=== PATIENT | male | born 1955 | race Caucasian/White ===

== ENCOUNTER 2017-03-30 15:11 | Emergency (ER) | payer SELFPAY ==
[~2017-03-30] VITALS: Ht 27.9 cm; Wt 64.0 kg
[~2017-03-30 15:11] MED LIST: ASPI-1441 PO; IBU600 PO; LORA10CA3 PO; PRA20 PO; [UNRECOGNIZED DRUG - CODE] TD
--- NOTE | 2017-03-30 15:18 | ER Report ---
History and Physical Time Seen By MD: 15:17 (RANDOLPH VILLALBA MD) HPI/ROS CHIEF COMPLAINT: Possible stroke HISTORY OF PRESENT ILLNESS: 61-year-old male all-time smoker smokes less than a pack a day currently 2 prior CVAs presents with acute onset of neurological disability and is concerned for recurrent stroke. He reports word finding difficulty onset around 2:15 PM. He feels the symptoms may be ongoing. He was trying to describe something and couldn't find the words and felt frustrated because normally it should be easy to find the words. He did not notice any garbled or slurred speech. He did not notice any weakness or numbness or facial droop. He did not notice any syncope or presyncopal symptoms lightheadedness dizziness chest pain shortness of breath abdominal pain urinary symptoms or leg swelling. He did not notice any other problems. He was referred from clinic. REVIEW OF SYSTEMS: Constitutional: No fever, no chills. Eyes: No discharge. ENT: No sore throat. Cardiovascular: No chest pain, no palpitations. Respiratory: No cough, no shortness of breath. Gastrointestinal: No abdominal pain, no vomiting. Genitourinary: No hematuria. Musculoskeletal: No back pain. Skin: No rashes. Neurological: No headache. (RANDOLPH VILLALBA MD) Allergies: Coded Allergies: Codeine (Verified Allergy, itchy, 11/03/11) Penicillins (Verified Allergy, itchy, 11/03/11) Home Meds Reported Medications Nicotine (Nicotine Patch) 1 Box Patch.dysq, 1 BOX TD DAILY 21 mg/24 hour patch. May get OTC if he wishes to continue using. 11/04/11 Pravastatin Sod (PRAVACHOL (OR EQUIV)) 20 Mg Tab, 20 MG PO DAILY, #30 At bedtime 11/04/11 Aspirin (Aspirin Ec) 81 Mg Tablet.dr, 81 MG PO DAILY, #100 2 tablets daily 11/04/11 Loratadine (Claritin) 10 Mg Capsule, 1 TAB PO DAILY 11/03/11 Hx Smoking: Yes (pack day) Hx Alcohol Use: Yes (RARELY) (RANDOLPH VILLALBA MD) Constitutional Vital Sign - Last 24 Hours 03/30/17 03/30/17 03/30/17 03/30/17 15:19 15:21 15:26 15:37 Pulse 97 ??? Resp 16 B/P (MAP) 135/95 135/95 (108) 123/96 (105) Pulse Ox 96 96 O2 Delivery Room Air 03/30/17 03/30/17 03/30/17 03/30/17 15:41 15:56 16:00 16:05 Pulse 97 87 96 Resp 12 18 22 B/P (MAP) 120/79 (93) Pulse Ox 95 95 03/30/17 03/30/17 03/30/17 03/30/17 16:30 16:35 18:00 18:05 Pulse 90 91 Resp 13 B/P (MAP) 121/75 (90) 127/86 (100) Pulse Ox 95 97 03/30/17 03/30/17 03/30/17 03/30/17 18:10 18:15 18:25 18:31 Pulse 81 89 B/P (MAP) 114/69 (84) Pulse Ox 95 95 96 (EDILBERTO AGOSTO MD) Physical Exam General Appearance: The patient is alert, has no immediate need for airway protection and no signs of toxicity. No acute distress he appears to be in good spirits Eyes: Pupils equal and round no pallor or injection. ENT, Mouth: Mucous membranes are moist. Respiratory: There are no retractions, lungs are clear to auscultation. Cardiovascular: Regular rate and rhythm. No murmurs gallops or rubs Gastrointestinal: Abdomen is soft and non tender, no masses, bowel sounds normal. Neurological: Cranial nerve II through XII intact 5/ 5 strength bilateral upper extremities 5 out of 5 strength bilateral lower extremities normal sensation to light touch bilateral upper extremities normal sensation to light touch her lateral lower extremities no overdraft with arm extension normal finger to nose bilaterally normal [id number] bilaterally Skin: Warm and dry, no rashes. Musculoskeletal: Neck is supple non tender. Extremities are nontender, nonswollen and have full range of motion. no edema DIFFERENTIAL DIAGNOSIS: After history and physical exam differential diagnosis was considered for cva, tia, no signs of trauma, ICH or meningitis. (RANDOLPH VILLALBA MD) Medical Decision Making Data Points Result Diagram: 03/30/17 1545 03/30/17 1545 Laboratory Hematology Test 03/30/17 15:45 Red Blood Count 4.47 M/uL (4.00-5.60) Mean Corpuscular Volume 97.2 fL (80.0-96.0) Mean Corpuscular Hemoglobin 33.9 pg (26.0-33.0) Mean Corpuscular Hemoglobin Concent 34.9 g/dL (32.0-36.0) Red Cell Distribution Width 12.7 % (11.5-14.5) Mean Platelet Volume 8.1 fL (7.2-11.1) Neutrophils (%) (Auto) 54.4 % (39.4-72.5) Lymphocytes (%) (Auto) 35.2 % (17.6-49.6) Monocytes (%) (Auto) 8.0 % (4.1-12.4) Eosinophils (%) (Auto) 1.6 % (0.4-6.7) Basophils (%) (Auto) 0.8 % (0.3-1.4) Nucleated RBC Relative Count (auto) 0.0 /100WBC Neutrophils # (Auto) 3.0 K/uL (2.0-7.4) Lymphocytes # (Auto) 2.0 K/uL (1.3-3.6) Monocytes # (Auto) 0.4 K/uL (0.3-1.0) Eosinophils # (Auto) 0.1 K/uL (0.0-0.5) Basophils # (Auto) 0.0 K/uL (0.0-0.1) Nucleated RBC Absolute Count (auto) 0.00 K/uL Prothrombin Time 12.9 seconds (12.0-14.4) Prothromb Time International Ratio 0.97 Activated Partial Thromboplast Time 25 seconds (23-35) Sodium Level 138 mmol/L (137-145) Potassium Level 4.4 mmol/L (3.5-5.0) Chloride Level 101 mmol/L (98-107) Carbon Dioxide Level 24 mmol/L (22-30) Blood Urea Nitrogen 22 mg/dl (9-21) Creatinine 1.40 mg/dl (0.66-1.25) Glomerular Filtration Rate Calc 51.9 Random Glucose 95 mg/dl (75-110) Calcium Level 9.3 mg/dl (8.4-10.2) Chemistry Test 03/30/17 15:45 White Blood Count 5.6 k/uL (4.5-11.0) Red Blood Count 4.47 M/uL (4.00-5.60) Hemoglobin 15.2 g/dL (14.0-18.0) Hematocrit 43.5 % (42.0-52.0) Mean Corpuscular Volume 97.2 fL (80.0-96.0) Mean Corpuscular Hemoglobin 33.9 pg (26.0-33.0) Mean Corpuscular Hemoglobin Concent 34.9 g/dL (32.0-36.0) Red Cell Distribution Width 12.7 % (11.5-14.5) Platelet Count 137 K/uL (150-450) Mean Platelet Volume 8.1 fL (7.2-11.1) Neutrophils (%) (Auto) 54.4 % (39.4-72.5) Lymphocytes (%) (Auto) 35.2 % (17.6-49.6) Monocytes (%) (Auto) 8.0 % (4.1-12.4) Eosinophils (%) (Auto) 1.6 % (0.4-6.7) Basophils (%) (Auto) 0.8 % (0.3-1.4) Nucleated RBC Relative Count (auto) 0.0 /100WBC Neutrophils # (Auto) 3.0 K/uL (2.0-7.4) Lymphocytes # (Auto) 2.0 K/uL (1.3-3.6) Monocytes # (Auto) 0.4 K/uL (0.3-1.0) Eosinophils # (Auto) 0.1 K/uL (0.0-0.5) Basophils # (Auto) 0.0 K/uL (0.0-0.1) Nucleated RBC Absolute Count (auto) 0.00 K/uL Prothrombin Time 12.9 seconds (12.0-14.4) Prothromb Time International Ratio 0.97 Activated Partial Thromboplast Time 25 seconds (23-35) Glomerular Filtration Rate Calc 51.9 Calcium Level 9.3 mg/dl (8.4-10.2) Coagulation Test 03/30/17 15:45 Prothrombin Time 12.9 seconds Prothromb Time International Ratio 0.97 Activated Partial Thromboplast Time 25 seconds (EDILBERTO AGOSTO MD) EKG/Imaging EKG Interpretation Normal sinus rhythm, normal intervals no st/t wave changes. 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 Findings: No radiopaque metallic foreign bodies project over the orbits. IMPRESSION: 1. No radiopaque metallic foreign bodies project over the orbits Report Dictated By: Shae Franklin MD at 03/30/2017 5:28 PM Examination: MR brain without contrast History: CVA, Word finding difficulties Comparison: Head CT November 03, 2011 Technique: Multiplane MR imaging was performed through the brain without contrast. Findings: Diffusion: Cortical and juxtacortical white matter diffusion restriction in the left lateral frontal lobe measures up to 2.5 cm transverse. Ventricles: Normal Midline shift: None Extraaxial fluid: None. Midline craniocervical structures: Normal Parenchyma: Hemosiderin staining in the right frontal lobe and right temporal occipital region in regions of encephalomalacia. Multiple small bilateral chronic cerebellar infarcts. Right occipital, right temporal occipital, and right frontal lobe encephalomalacia similar to prior. A few scattered white matter high signal foci. Vascular flow voids: Normal Orbits and paranasal sinuses: Left maxillary sinus mucous retention cyst. Impression: 1. Acute to subacute left lateral frontal lobe infarct measuring up to 2.5 cm in largest transverse dimension. 2. Multifocal right-sided supratentorial encephalomalacia similar to prior. 3. Multiple small chronic bilateral cerebellar infarcts. Report Dictated By: Daniel Cardoza MD at 03/30/2017 6:19 PM ([facility] ED Course/Re-evaluation Clinical Indication for ER IV: IV Access ED Course I reviewed this patient with Dr. Villalba at shift changed and assumed care. This is a 61 year old male with concern for possible stroke. MRI was done and does show a left frontal area subacute versus acute CVA. I discussed this with the patient. Recommended that with a stroke we usually recommend admission to the hospital. His symptoms are gone. He was not even sure that he wanted to get the MRI. He does not want to stay in the hospital or be transferred. He is on Aspirin and on Pravastatin. He has no problems with blood pressure. He states that he will call Dr. Eubanks's office and schedule a follow-up with him. He agrees that should he have symptoms, he can return to the ER. I did not make him sign an AMA form, but did review usual treatment and risks with him. Decision to Disposition Date: Mar 30, 2017 Decision to Disposition Time: 18:31 (EDILBERTO AGOSTO MD) Depart Departure Latest Vital Signs Vital Signs Date Time Temp Pulse Resp B/P (MAP) Pulse Ox O2 Delivery O2 Flow Rate FiO2 03/30/17 18:31 114/69 (84) 03/30/17 18:25 96 03/30/17 18:15 89 03/30/17 16:35 13 03/30/17 15:19 Room Air (EDILBERTO AGOSTO MD) Impression: Primary Impression: Ischemic stroke of frontal lobe Additional Impression: Aphasia Condition: Improved Disposition: HOME OR SELF-CARE Referrals: CORNELIO EUBANKS DO Patient Instructions: Ischemic Stroke (DC), Self Care Measures After a Stroke ( ED) Additional Instructions: Keep taking your aspirin and you Pravastatin. Call Dr. Eubanks's office tomorrow to schedule a follow-up evaluation with him. If you have any recurrent symptoms tonight, you can return for re-evaluation and can reconsider hospitalization. Problem Qualifiers RANDOLPH VILLALBA MD Mar 30, 2017 15:18 EDILBERTO AGOSTO MD Mar 30, 2017 18:20
[2017-03-30 15:58] LABS: PLATELET COUNT, AUTOMATED 137 K/uL (150-450)
[2017-03-30 16:11] LABS: INR 0.97
--- NOTE | 2017-03-30 17:04 | EKG ---
FACILITY: [facility] PATIENT NAME: MAHAD AMEZQUITA : [id number] MR: [id number] V: [id number] EXAM DATE: ORDERING PHYSICIAN: RANDOLPH VILLALBA TECHNOLOGIST: Test Reason : Blood Pressure : / mmHG Vent. Rate : 091 BPM Atrial Rate : 091 BPM P-R Int : 106 ms QRS Dur : 072 ms QT Int : 348 ms P-R-T Axes : 036 035 031 degrees QTc Int : 428 ms Sinus rhythm with short MA Possible Left atrial enlargement Borderline ECG No previous ECGs available Confirmed by GLENROY NELSON ([id number]) on 03/31/2017 1:59:59 AM Referred By: Confirmed By:GLENROY NELSON
--- NOTE | 2017-03-30 17:33 | RADIOLOGY IMAGING REPORT ---
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 Findings: No radiopaque metallic foreign bodies project over the orbits. IMPRESSION: 1. No radiopaque metallic foreign bodies project over the orbits Report Dictated By: Shae Franklin MD at 03/30/2017 5:28 PM Report E-Signed By: Shae Franklin MD at 03/30/2017 5:29 PM WSN:[email or web address]
--- NOTE | 2017-03-30 18:28 | RADIOLOGY IMAGING REPORT ---
FACILITY: [facility] PATIENT NAME: Jack Cobb : 1955 MR: [id number] V: [id number] EXAM DATE: ORDERING PHYSICIAN: RANDOLPH VILLALBA TECHNOLOGIST: [place] [facility] [place] Jack Cobb : 1955 Visit/Account:[id number] Date of Sevice: 03/30/2017 Examination: MR brain without contrast History: CVA, Word finding difficulties Comparison: Head CT November 03, 2011 Technique: Multiplane MR imaging was performed through the brain without contrast. Findings: Diffusion: Cortical and juxtacortical white matter diffusion restriction in the left lateral frontal lobe measures up to 2.5 cm transverse. Ventricles: Normal Midline shift: None Extraaxial fluid: None. Midline craniocervical structures: Normal Parenchyma: Hemosiderin staining in the right frontal lobe and right temporal occipital region in reg ions of encephalomalacia. Multiple small bilateral chronic cerebellar infarcts. Right occipital, righ t temporal occipital, and right frontal lobe encephalomalacia similar to prior. A few scattered white matter high signal foci. Vascular flow voids: Normal Orbits and paranasal sinuses: Left maxillary sinus mucous retention cyst. Impression: 1. Acute to subacute left lateral frontal lobe infarct measuring up to 2.5 cm in largest transverse d imension. 2. Multifocal right-sided supratentorial encephalomalacia similar to prior. 3. Multiple small chronic bilateral cerebellar infarcts. Report Dictated By: Daniel Cardoza MD at 03/30/2017 6:19 PM Report E-Signed By: Daniel Cardoza MD at 03/30/2017 6:25 PM WSN:[id number]
[2017-03-30 18:31] VITALS: BP 114/69
== END 2017-03-30 18:37 | disposition home or self-care (01) ==
LOC: ER 15:20
DX: I63.8 Other cerebral infarction (principal); R47.01 Aphasia; Z86.73 Personal history of transient ischemic attack (TIA), and cerebral infarction without residual deficits; F17.210 Nicotine dependence, cigarettes, uncomplicated
CPT/HCPCS: 70030; 70551; 82310; 82374; 82435; 82565; 82947; 84132; 84295; 84520; 85025; 85610; 85730; 93005; 99284

== ENCOUNTER → 2017-04-20 | Outpatient (CLI) | payer SELFPAY ==
--- NOTE | 2017-04-20 10:06 | RADIOLOGY IMAGING REPORT ---
FACILITY: [facility] PATIENT NAME: Jack Cobb : 1955 MR: [id number] V: [id number] EXAM DATE: ORDERING PHYSICIAN: CORNELIO EUBANKS TECHNOLOGIST: Location: [facility] Patient: Jack Cobb : 1955 Visit/Account:[id number] Date of Sevice: 04/20/2017 CAROTID HISTORY: History of TIA/stroke, on Plavix COMPARISON: None. FINDINGS: Grayscale, duplex and color Doppler interrogation of the extracranial carotid and vertebral arteries was performed bilateral. On the right, peak systolic velocities within the common and internal carotid arteries are 203 and 99 cm/sec respectively. Is a small amount of plaque at the right carotid bulb extending into the proxi mal right internal carotid artery. Antegrade flow within the common, internal and external carotid a rteries as well as vertebral artery. ICA/CCA ratio 0.6. On the left, peak systolic velocities within the common and internal carotid arteries are 131 and 109 cm/sec respectively. There is a small amount of plaque at the left carotid bulb extending into the proximal left internal carotid artery. Antegrade flow within the common, internal and external carot id arteries as well as vertebral artery. ICA/CCA ratio 1.2. IMPRESSION: Smaller plaque at the carotid bulbs extending into the proximal internal carotid arteries although no hemodynamically significant lesions identified in the internal carotid arteries. Of note on the pea k systolic velocity in the right common carotid artery slightly elevated at 203 cm/s Velocity criteria are extrapolated from diameter data as defined by the Society of Radiologists [place] [facility] Consensus Conference Radiology 2003; 229;340-346 Report Dictated By: Shae Franklin MD at 04/20/2017 9:34 AM Report E-Signed By: Shae Franklin MD at 04/20/2017 10:01 AM WSN:[email or web address]
== END ==
LOC: US 01:25
PROVIDERS: ATTEND Family Medicine
DX: I65.23 Occlusion and stenosis of bilateral carotid arteries (principal)
CPT/HCPCS: 93880